=== PATIENT | male | born 1950 ===

== ENCOUNTER 2019-07-25 10:26 | Outpatient (CLI) | payer OTHER | END 2019-07-25 10:27 | disposition home or self-care (01) | LOC: DI 10:26 | PROVIDERS: ATTEND Nurse Practitioner Family | DX: R06.00 Dyspnea, unspecified (principal); I51.9 Heart disease, unspecified; I11.9 Hypertensive heart disease without heart failure | CPT/HCPCS: 93306 ==

== ENCOUNTER 2021-02-14 15:14 | Outpatient (CLI) | payer OTHER | END 2021-02-14 15:15 | disposition short-term general hospital (02) | LOC: EMS 15:14 | DX: R40.4 Transient alteration of awareness (principal) | CPT/HCPCS: A0425; A0433 ==